=== PATIENT | male | born 1945 | race Caucasian/White ===

== ENCOUNTER 2017-12-16 11:04 | Inpatient (IN) | payer OTHER ==
[~2017-12-16] VITALS: Ht 180.3 cm; Wt 86.2 kg
[2017-12-16 13:45] VITALS: BP 148/77
[2017-12-16] MEDS ORDERED: COREG6.25 M1 PO (14:35)
[2017-12-16] MEDS ORDERED: MURO-128 5300 DROP/1 LEFT EYE (14:37)
[2017-12-16] MEDS ORDERED: FLOMAX0.4 MG PO (14:39)
[2017-12-16] MEDS ORDERED: MICRO-K10 ME2 PO (14:40)
[2017-12-16] MEDS ORDERED: COUMADIN2 MG PO (14:41)
[2017-12-16] MEDS ORDERED: ATORVASTATIN CA20 MG PO (14:42)
[2017-12-16] MEDS ORDERED: FOLIC ACID0.4 MG PO (14:43)
[2017-12-16] MEDS ORDERED: LASIX40 MG PO (14:43)
[2017-12-16] MEDS ORDERED: PRINIVIL10 MG PO (14:44)
[2017-12-16] MEDS ORDERED: ULORIC40 MG PO (14:45)
[2017-12-17 00:01] VITALS: BP 119/69
[2017-12-17 04:23] VITALS: BP 110/66
[2017-12-17 07:33] LABS: BASOPHIL (%) 0.2 % (0-1); EOSINOPHIL (%) 0.8 % (0-5); EOSINOPHIL COUNT 0.1 K/uL (0-0.3); HEMATOCRIT 32.4 % (38.0-50.0); HEMOGLOBIN 10.2 G/DL (12.5-16.6); IMMATURE GRANULOCYTE (%) 0.9 % (0.0-0.7); LYMPHOCYTE (%) 9.6 % (15-42); MCH 29.1 PG (29.0-34.0); MCHC 31.5 G/DL (30.0-36.0); MCV 92.3 FL (86-99); MONOCYTE (%) 12.3 % (3-12); MONOCYTE COUNT 1.3 K/uL (0-0.8); NEUTROPHIL (%) 76.2 % (45-76); NEUTROPHIL COUNT 8.1 K/uL (1.8-6.4); PLATELET COUNT 214 K/uL (156-360); RBC DIS.WIDTH-CV 14.7 % (11.8-14.6); RBC DIS.WIDTH-SD 49.8 % (39-53); RED BLOOD COUNT 3.51 M/uL (4.00-5.50); WHITE BLOOD COUNT 10.6 K/uL (4.1-10.2)
[2017-12-17 07:36] LABS: INTER. NORMALIZED RATIO 3.3
[2017-12-17 07:57] LABS: ALBUMIN 2.4 G/DL (3.2-4.8); ALKALINE PHOSPHATASE 58 IU/L (3-129); ALT (GPT) 19 IU/L (3-49); AST (GOT) 26 IU/L (2-34); CHLORIDE 103 MEQ/L (99-109); CREATININE 1.1 MG/DL (0.6-1.3); GFR ESTIMATE (CALCULATED) > 59 mL/min/ (58.99-99999); GLUCOSE 115 mg/dL (70-99); POTASSIUM 3.5 MEQ/L (3.7-5.4); SODIUM 139 MEQ/L (136-147); TOTAL BILIRUBIN 1.5 MG/DL (0.0-1.0); UREA NITROGEN (BUN) 16 mg/dL (9-23)
[2017-12-17 08:30] LABS: FOLIC ACID (FOLATE) > 22.0 NG/ML (5.0-22.0)
[2017-12-17 15:42] VITALS: BP 136/73
[2017-12-18 05:05] VITALS: BP 114/61
[2017-12-18 08:09] LABS: INTER. NORMALIZED RATIO 2.4
[2017-12-18 15:50] VITALS: BP 108/61
[2017-12-19 05:52] VITALS: BP 127/59
[2017-12-19 06:17] LABS: BASOPHIL (%) 0.3 % (0-1); EOSINOPHIL (%) 2.2 % (0-5); EOSINOPHIL COUNT 0.2 K/uL (0-0.3); HEMATOCRIT 29.2 % (38.0-50.0); HEMOGLOBIN 9.2 G/DL (12.5-16.6); IMMATURE GRANULOCYTE (%) 0.9 % (0.0-0.7); LYMPHOCYTE (%) 13.2 % (15-42); MCH 29.4 PG (29.0-34.0); MCHC 31.5 G/DL (30.0-36.0); MCV 93.3 FL (86-99); MONOCYTE (%) 8.1 % (3-12); MONOCYTE COUNT 0.6 K/uL (0-0.8); NEUTROPHIL (%) 75.3 % (45-76); NEUTROPHIL COUNT 5.9 K/uL (1.8-6.4); PLATELET COUNT 219 K/uL (156-360); RBC DIS.WIDTH-CV 14.6 % (11.8-14.6); RBC DIS.WIDTH-SD 49.7 % (39-53); RED BLOOD COUNT 3.13 M/uL (4.00-5.50); WHITE BLOOD COUNT 7.9 K/uL (4.1-10.2)
[2017-12-19 06:42] LABS: CHLORIDE 106 MEQ/L (99-109); CREATININE 1.3 MG/DL (0.6-1.3); GFR ESTIMATE (CALCULATED) 58 mL/min/ (58.99-99999); GLUCOSE 120 mg/dL (70-99); POTASSIUM 3.6 MEQ/L (3.7-5.4); SODIUM 143 MEQ/L (136-147); UREA NITROGEN (BUN) 16 mg/dL (9-23)
[2017-12-19 15:26] VITALS: BP 138/70
[2017-12-20 05:40] VITALS: BP 144/77
[2017-12-20 16:12] VITALS: BP 142/78
[2017-12-21 05:31] VITALS: BP 137/63
[2017-12-21 16:11] VITALS: BP 130/72
[2017-12-22 06:25] LABS: BASOPHIL (%) 0.4 % (0-1); EOSINOPHIL (%) 1.7 % (0-5); EOSINOPHIL COUNT 0.1 K/uL (0-0.3); HEMATOCRIT 31.2 % (38.0-50.0); HEMOGLOBIN 9.7 G/DL (12.5-16.6); IMMATURE GRANULOCYTE (%) 0.6 % (0.0-0.7); LYMPHOCYTE (%) 13.9 % (15-42); MCH 29.4 PG (29.0-34.0); MCHC 31.1 G/DL (30.0-36.0); MCV 94.5 FL (86-99); MONOCYTE COUNT 0.8 K/uL (0-0.8); NEUTROPHIL (%) 72.4 % (45-76); NEUTROPHIL COUNT 5.2 K/uL (1.8-6.4); PLATELET COUNT 245 K/uL (156-360); RBC DIS.WIDTH-CV 14.5 % (11.8-14.6); RBC DIS.WIDTH-SD 49.8 % (39-53); WHITE BLOOD COUNT 7.2 K/uL (4.1-10.2)
[2017-12-22 06:36] LABS: INTER. NORMALIZED RATIO 3.2
[2017-12-22 06:40] VITALS: BP 147/76
[2017-12-22 06:49] LABS: ALBUMIN 2.6 G/DL (3.2-4.8); ALKALINE PHOSPHATASE 60 IU/L (3-129); ALT (GPT) 13 IU/L (3-49); AST (GOT) 21 IU/L (2-34); CHLORIDE 104 MEQ/L (99-109); CREATININE 1.5 MG/DL (0.6-1.3); GFR ESTIMATE (CALCULATED) 49 mL/min/ (58.99-99999); GLUCOSE 115 mg/dL (70-99); SODIUM 142 MEQ/L (136-147); TOTAL BILIRUBIN 1.3 MG/DL (0.0-1.0); TOTAL PROTEIN 5.6 G/DL (6.4-8.3); UREA NITROGEN (BUN) 15 mg/dL (9-23)
[2017-12-22 06:52] LABS: POTASSIUM 4.5 MEQ/L (3.7-5.4)
[2017-12-22 16:12] VITALS: BP 112/55
[2017-12-23 07:03] VITALS: BP 125/71
[2017-12-23 15:27] VITALS: BP 156/85
[2017-12-24 05:32] VITALS: BP 116/56
[2017-12-24 15:15] VITALS: BP 128/69
[2017-12-25 06:05] VITALS: BP 143/64
[2017-12-25 15:50] VITALS: BP 128/67
[2017-12-26 05:29] VITALS: BP 91/53
[2017-12-26 15:46] VITALS: BP 108/67
[2017-12-27 05:30] VITALS: BP 136/63
[2017-12-27 06:08] LABS: BASOPHIL (%) 0.4 % (0-1); EOSINOPHIL (%) 2.7 % (0-5); EOSINOPHIL COUNT 0.2 K/uL (0-0.3); HEMATOCRIT 34.9 % (38.0-50.0); HEMOGLOBIN 10.9 G/DL (12.5-16.6); IMMATURE GRANULOCYTE (%) 0.5 % (0.0-0.7); LYMPHOCYTE (%) 16.8 % (15-42); LYMPHOCYTE COUNT 1.4 K/uL (1.0-2.8); MCH 29.1 PG (29.0-34.0); MCHC 31.2 G/DL (30.0-36.0); MCV 93.3 FL (86-99); MONOCYTE (%) 11.7 % (3-12); NEUTROPHIL (%) 67.9 % (45-76); NEUTROPHIL COUNT 5.6 K/uL (1.8-6.4); RBC DIS.WIDTH-CV 14.5 % (11.8-14.6); RBC DIS.WIDTH-SD 49.1 % (39-53); RED BLOOD COUNT 3.74 M/uL (4.00-5.50); WHITE BLOOD COUNT 8.2 K/uL (4.1-10.2)
[2017-12-27 06:09] LABS: PLATELET COUNT 333 K/uL (156-360)
[2017-12-27 06:44] LABS: CHLORIDE 102 MEQ/L (99-109); CREATININE 1.5 MG/DL (0.6-1.3); GFR ESTIMATE (CALCULATED) 49 mL/min/ (58.99-99999); GLUCOSE 106 mg/dL (70-99); POTASSIUM 5.2 MEQ/L (3.7-5.4); SODIUM 139 MEQ/L (136-147); UREA NITROGEN (BUN) 17 mg/dL (9-23)
[2017-12-27 15:43] VITALS: BP 113/57
[2017-12-28 04:53] VITALS: BP 133/62
[2017-12-28 15:14] VITALS: BP 98/55
[2017-12-28 21:42] VITALS: BP 102/59
[2017-12-29 04:20] VITALS: BP 107/58
[2017-12-29 06:07] LABS: BASOPHIL (%) 0.7 % (0-1); BASOPHIL COUNT 0.1 K/uL (0-0.1); EOSINOPHIL (%) 3.3 % (0-5); EOSINOPHIL COUNT 0.2 K/uL (0-0.3); HEMATOCRIT 33.9 % (38.0-50.0); HEMOGLOBIN 10.3 G/DL (12.5-16.6); IMMATURE GRANULOCYTE (%) 0.7 % (0.0-0.7); LYMPHOCYTE (%) 25.1 % (15-42); LYMPHOCYTE COUNT 1.8 K/uL (1.0-2.8); MCH 28.4 PG (29.0-34.0); MCHC 30.4 G/DL (30.0-36.0); MCV 93.4 FL (86-99); MONOCYTE (%) 14.8 % (3-12); NEUTROPHIL (%) 55.4 % (45-76); NEUTROPHIL COUNT 3.9 K/uL (1.8-6.4); PLATELET COUNT 319 K/uL (156-360); RBC DIS.WIDTH-CV 14.5 % (11.8-14.6); RBC DIS.WIDTH-SD 49.4 % (39-53); RED BLOOD COUNT 3.63 M/uL (4.00-5.50)
[2017-12-29 08:12] LABS: CHLORIDE 100 MEQ/L (99-109); GFR ESTIMATE (CALCULATED) 33 mL/min/ (58.99-99999); GLUCOSE 109 mg/dL (70-99); POTASSIUM 4.8 MEQ/L (3.7-5.4); SODIUM 138 MEQ/L (136-147)
[2017-12-29 08:15] LABS: CREATININE 2.1 MG/DL (0.6-1.3); UREA NITROGEN (BUN) 31 mg/dL (9-23)
[2017-12-29 15:05] VITALS: BP 110/67
[2017-12-29 21:15] VITALS: BP 78/40; BP 80/50
[2017-12-29 22:45] VITALS: BP 94/53
[2017-12-30 05:24] VITALS: BP 94/57
[2017-12-30 06:41] LABS: CHLORIDE 102 MEQ/L (99-109); GFR ESTIMATE (CALCULATED) 23 mL/min/ (58.99-99999); GLUCOSE 93 mg/dL (70-99); POTASSIUM 5.1 MEQ/L (3.7-5.4); SODIUM 140 MEQ/L (136-147); UREA NITROGEN (BUN) 34 mg/dL (9-23)
[2017-12-30 06:45] LABS: CREATININE 2.9 MG/DL (0.6-1.3)
[2017-12-30 15:27] VITALS: BP 94/61
[2017-12-30 21:00] VITALS: BP 123/68
[2017-12-31 02:49] LABS: APPEARANCE CLEAR ((CLEAR)); BILIRUBIN NEGATIVE; BLOOD NEGATIVE; COLOR AMBER ((YELLOW)); GLUCOSE (STRIP) NEGATIVE; KETONES NEGATIVE; LEUKOCYTES TRACE; NITRITE NEGATIVE; PROTEIN (STRIP) NEGATIVE; SPECIFIC GRAVITY 1.019 (1.000-1.030)
[2017-12-31 03:00] LABS: BACTERIA RARE /HPF; EPITHELIAL CELLS RARE /HPF; HYALINE CASTS 20-30 /LPF; MUCUS TRACE /LPF; RED BLOOD CELLS 0-5 /HPF (0-5)
[2017-12-31 04:09] VITALS: BP 124/67
[2017-12-31 06:12] LABS: HEMATOCRIT 32.5 % (38.0-50.0); HEMOGLOBIN 9.9 G/DL (12.5-16.6); MCH 28.8 PG (29.0-34.0); MCHC 30.5 G/DL (30.0-36.0); MCV 94.5 FL (86-99); PLATELET COUNT 279 K/uL (156-360); RBC DIS.WIDTH-CV 14.4 % (11.8-14.6); RBC DIS.WIDTH-SD 49.1 % (39-53); RED BLOOD COUNT 3.44 M/uL (4.00-5.50); WHITE BLOOD COUNT 6.3 K/uL (4.1-10.2)
[2017-12-31 06:36] LABS: CHLORIDE 105 MEQ/L (99-109); GFR ESTIMATE (CALCULATED) 29 mL/min/ (58.99-99999); GLUCOSE 98 mg/dL (70-99); MAGNESIUM 2.1 mg/dl (1.3-2.7); POTASSIUM 5.2 MEQ/L (3.7-5.4); SODIUM 140 MEQ/L (136-147); UREA NITROGEN (BUN) 40 mg/dL (9-23)
[2017-12-31 06:39] LABS: CREATININE 2.4 MG/DL (0.6-1.3)
[2017-12-31 15:26] VITALS: BP 113/57
[2018-01-01 03:46] VITALS: BP 129/57
[2018-01-01 06:41] LABS: BASOPHIL (%) 0.6 % (0-1); EOSINOPHIL (%) 4.8 % (0-5); EOSINOPHIL COUNT 0.3 K/uL (0-0.3); HEMATOCRIT 29.9 % (38.0-50.0); HEMOGLOBIN 9.2 G/DL (12.5-16.6); IMMATURE GRANULOCYTE (%) 0.6 % (0.0-0.7); LYMPHOCYTE (%) 25.4 % (15-42); LYMPHOCYTE COUNT 1.4 K/uL (1.0-2.8); MCHC 30.8 G/DL (30.0-36.0); MCV 94.3 FL (86-99); MONOCYTE (%) 13.5 % (3-12); MONOCYTE COUNT 0.7 K/uL (0-0.8); NEUTROPHIL (%) 55.1 % (45-76); PLATELET COUNT 244 K/uL (156-360); RBC DIS.WIDTH-CV 14.4 % (11.8-14.6); RBC DIS.WIDTH-SD 49.6 % (39-53); RED BLOOD COUNT 3.17 M/uL (4.00-5.50); WHITE BLOOD COUNT 5.4 K/uL (4.1-10.2)
[2018-01-01 07:14] LABS: CHLORIDE 108 MEQ/L (99-109); GFR ESTIMATE (CALCULATED) 53 mL/min/ (58.99-99999); GLUCOSE 97 mg/dL (70-99); MAGNESIUM 1.8 mg/dl (1.3-2.7); PHOSPHORUS 2.7 mg/dL (2.5-4.9); POTASSIUM 4.8 MEQ/L (3.7-5.4); SODIUM 141 MEQ/L (136-147); UREA NITROGEN (BUN) 29 mg/dL (9-23)
[2018-01-01 07:16] LABS: CREATININE 1.4 MG/DL (0.6-1.3)
[2018-01-01 14:24] VITALS: BP 114/69
[2018-01-02 06:13] VITALS: BP 149/68
[2018-01-02 16:01] VITALS: BP 133/62
[2018-01-03 04:26] VITALS: BP 139/68
[2018-01-03 05:56] VITALS: BP 139/68
[2018-01-03 05:58] LABS: BASOPHIL (%) 0.6 % (0-1); EOSINOPHIL (%) 3.6 % (0-5); EOSINOPHIL COUNT 0.2 K/uL (0-0.3); HEMATOCRIT 29.6 % (38.0-50.0); HEMOGLOBIN 9.3 G/DL (12.5-16.6); IMMATURE GRANULOCYTE (%) 0.4 % (0.0-0.7); LYMPHOCYTE (%) 22.1 % (15-42); LYMPHOCYTE COUNT 1.2 K/uL (1.0-2.8); MCH 28.9 PG (29.0-34.0); MCHC 31.4 G/DL (30.0-36.0); MCV 91.9 FL (86-99); MONOCYTE COUNT 0.8 K/uL (0-0.8); NEUTROPHIL (%) 58.3 % (45-76); NEUTROPHIL COUNT 3.1 K/uL (1.8-6.4); PLATELET COUNT 209 K/uL (156-360); RBC DIS.WIDTH-CV 14.5 % (11.8-14.6); RBC DIS.WIDTH-SD 48.5 % (39-53); RED BLOOD COUNT 3.22 M/uL (4.00-5.50); WHITE BLOOD COUNT 5.3 K/uL (4.1-10.2)
[2018-01-03 06:26] LABS: CHLORIDE 104 MEQ/L (99-109); CREATININE 1.1 MG/DL (0.6-1.3); GFR ESTIMATE (CALCULATED) > 59 mL/min/ (58.99-99999); GLUCOSE 102 mg/dL (70-99); POTASSIUM 4.2 MEQ/L (3.7-5.4); SODIUM 138 MEQ/L (136-147); UREA NITROGEN (BUN) 16 mg/dL (9-23)
[2018-01-03 15:48] VITALS: BP 138/78
[2018-01-03] MEDS ORDERED: ATORVASTATIN CA20 MG PO (19:45)
[2018-01-03] MEDS ORDERED: POLYETHYLENE GL17 GM PO (19:45)
[2018-01-03] MEDS ORDERED: FOLIC ACID1 MG PO (19:45)
[2018-01-03] MEDS ORDERED: FAMOTIDINE20 MG PO (19:45)
[2018-01-03] MEDS ORDERED: ULORIC40 MG PO (19:45)
[2018-01-03] MEDS ORDERED: XARELTO20 MG PO (19:45)
[2018-01-03] MEDS ORDERED: FLOMAX0.4 MG PO (19:45)
[2018-01-03] MEDS ORDERED: CARVEDILOL3.125 MG PO (19:45)
[2018-01-04 05:26] VITALS: BP 157/74
== END 2018-01-04 15:00 | DRG 56 ==
LOC: 3WEST 11:04 → ENPENDDIS 01-04 → 3WEST 01-04 15:00
PROVIDERS: Family Medicine Sports Medicine; Internal Medicine Nephrology; Physical Medicine & Rehabilitation Pain Medicine; Psychiatry & Neurology Neurology; Specialist
PROC: F07M0ZZ Range of Motion and Joint Mobility Treatment of Musculoskeletal System - Whole Body (ICD-10-PCS; principal; 2017-12-16)
DX: I69.351 Hemiplegia and hemiparesis following cerebral infarction affecting right dominant side (principal); I69.354 Hemiplegia and hemiparesis following cerebral infarction affecting left non-dominant side; I69.320 Aphasia following cerebral infarction; I69.322 Dysarthria following cerebral infarction; I69.391 Dysphagia following cerebral infarction; R13.10 Dysphagia, unspecified; J69.0 Pneumonitis due to inhalation of food and vomit; I12.9 Hypertensive chronic kidney disease with stage 1 through stage 4 chronic kidney disease, or unspecified chronic kidney disease; N18.3 Chronic kidney disease, stage 3 (moderate); N17.9 Acute kidney failure, unspecified; T46.4X5A Adverse effect of angiotensin-converting-enzyme inhibitors, initial encounter; E86.0 Dehydration; E83.51 Hypocalcemia; E87.6 Hypokalemia; I48.2 Chronic atrial fibrillation; I42.9 Cardiomyopathy, unspecified; I27.20 Pulmonary hypertension, unspecified; I07.1 Rheumatic tricuspid insufficiency; E78.5 Hyperlipidemia, unspecified; I25.10 Atherosclerotic heart disease of native coronary artery without angina pectoris; D64.9 Anemia, unspecified; K59.00 Constipation, unspecified; K44.9 Diaphragmatic hernia without obstruction or gangrene; M10.9 Gout, unspecified; R33.9 Retention of urine, unspecified; Z79.01 Long term (current) use of anticoagulants; Z95.1 Presence of aortocoronary bypass graft; Z95.5 Presence of coronary angioplasty implant and graft
CPT/HCPCS: 71045; 71046; 74230; 76770; 80048; 80053; 81003; 82040; 82607; 82746; 82948; 83735; 84100; 84153; 84443; 84550; 85025; 85027; 85610; 85730; 92507 GN; 92523 GN; 92526 GN; 92611 GN; 93880; 93971; 94799; 97110 GO; 97530 GP; J2543; J7030; J7040; J7050